=== PATIENT | male | born 1975 | race Caucasian/White ===

== ENCOUNTER 2017-09-11 02:24 | Emergency (ER) | payer OTHER ==
[~2017-09-11] VITALS: Ht 175.3 cm; Wt 102.1 kg
[~2017-09-11 02:24] MED LIST: HYDROCODON-ACE1 EAC7 PO; INDOMETHACIN SR75 MG PO; KEFLEX500 MG PO
[2017-09-11] MEDS ORDERED: XANAX 0.5 MG0.5 MG (02:31)
[2017-09-11 02:49] LABS: ABSOLUTE BASOPHILS 0.1 thou/uL (0.0-0.2); ABSOLUTE EOSINOPHILS 0.1 thou/uL (0.0-0.7); ABSOLUTE LYMPHOCYTES 5.2 thou/uL (0.8-5.3); ABSOLUTE MONOCYTES 0.6 thou/uL (0.0-1.2); BASOPHILS 0.7 %; EOSINOPHILS 1.1 %; HEMATOCRIT 41.1 % (42.0-52.0); HEMOGLOBIN 13.9 gm/dL (14.0-18.0); LYMPHOCYTES 47.5 %; MCH 28.9 pg (26.0-34.0); MCHC 33.8 g/dL (28.0-37.0); MCV 85.4 fL (80.0-100.0); MONOCYTES 5.4 %; MPV 9.8 fl. (7.2-11.1); NUCLEATED RBCS 0 /100WBC; PLATELET COUNT* 176 thou/uL (150-400); POLYS 45.3 %; RBC 4.81 mil/uL (4.50-6.00)
[2017-09-11 02:56] LABS: CALCIUM 8.2 mg/dL (8.5-10.1); CREATININE 1.2 mg/dL (0.6-1.3); POTASSIUM 3.8 mmol/L (3.5-5.1)
[2017-09-11 03:01] LABS: ALBUMIN 3.8 g/dL (3.4-5.0); TOTAL BILIRUBIN 0.2 mg/dL (<0.1-1.0); TOTAL PROTEIN 6.8 g/dL (6.4-8.2)
[2017-09-11 03:10] LABS: URINE BILIRUBIN NEGATIVE (Negative); URINE BLOOD TRACE (Negative); URINE CLARITY CLEAR; URINE COLOR STRAW; URINE GLUCOSE-RANDOM NEGATIVE (Negative); URINE KETONES NEGATIVE (Negative); URINE LEUKOCYTES-REFLEX NEGATIVE (Negative); URINE NITRITE-REFLEX NEGATIVE (Negative); URINE PROTEIN NEGATIVE (Negative); URINE UROBILINOGEN 0.2 E.U./dl (0.2-1.0)
[2017-09-11 03:17] LABS: AMP/METHAMP Negative (Negative); BARBITURATES Negative (Negative); BENZODIAZEPINES Negative (Negative); COCAINE Negative (Negative); METHADONE Negative (Negative); OPIATES Negative (Negative); PCP Negative (Negative); THC Negative (Negative)
[2017-09-11 06:33] VITALS: BP 116/66
--- NOTE | 2017-09-11 13:22 | EKG ---
[place] [address] ELECTROCARDIOGRAM REPORT Name: TOBIPRIETO Hayes II Room: [facility]#: [id number] Admission: 09/11/17 Attend Phys: Discharge: 09/11/17 Date of : 73 Report #: [id number] THIS REPORT FOR: //name// [facility] ED Test Date: 2017-09-11 Test Time: 02:29:24 Pat Name: PRIETO BRITTON Department: Room: Gender: M Hemmer Automatic: MARIA VICTORIA : 1975 Requested By: Susan Astudillo Order Number: [id number] MD: Augie Jarrell Measurements Intervals [place] Rate: 74 P: 16 VA: 186 QRS: 35 QRSD: 90 T: 22 QT: 393 QTc: 436 Interpretive Statements Sinus rhythm Inferior infarct, old No previous ECG available for comparison Electronically Signed On 09-11-2017 13:22:02 CDT by Augie Jarrell [email or web address] <ELECTRONICALLY SIGNED> By: Augie Jarrell MD, [facility] 09/11/17 1322 [id number] Augie Jarrell MD, FACC /EPI
== END 2017-09-11 06:36 | disposition home or self-care (01) ==
LOC: M.ERS 02:24
PROVIDERS: Personal Emergency Response Attendant
DX: F10.129 Alcohol abuse with intoxication, unspecified (principal); R41.82 Altered mental status, unspecified; M06.9 Rheumatoid arthritis, unspecified; F41.9 Anxiety disorder, unspecified

== ENCOUNTER → 2020-01-04 | Outpatient (CLI) | payer BC ==
[~2020-01-04] MED LIST changes: +XANAX 0.5 MG0.5 MG
== END ==
LOC: M.LAB 15:55
PROVIDERS: ATTEND Internal Medicine Gastroenterology
DX: Z01.812 Encounter for preprocedural laboratory examination (principal); Z20.828 Contact with and (suspected) exposure to other viral communicable diseases; K52.9 Noninfective gastroenteritis and colitis, unspecified